=== PATIENT | female | born 1985 | race Caucasian/White ===

== ENCOUNTER 2019-07-13 14:06 | Emergency (ER) | payer MEDICAID ==
[~2019-07-13] VITALS: Ht 165.1 cm; Wt 79.9 kg
[~2019-07-13 14:06] MED LIST: IBUP800T48 PO
[2019-07-13 14:15] VITALS: BP 117/68; PULSE 78; RESP 18; Ht 165.1 cm; Wt 79.9 kg
== END 2019-07-13 16:13 | disposition home or self-care (01) ==
LOC: FTE 14:06
DX: S99.912A Unspecified injury of left ankle, initial encounter (principal); W19.XXXA Unspecified fall, initial encounter; Y92.9 Unspecified place or not applicable
CPT/HCPCS: 73610; 73630; Z7502